=== PATIENT | male | born 1980 | race African-American/Black ===

== ENCOUNTER 2017-05-30 22:20 | Emergency (ER) | payer MEDICAID ==
[2017-05-30 22:30] VITALS: BP 101/67
--- NOTE | 2017-05-30 23:57 | ER Document Report ---
ED General - General Chief Complaint: Nose Bleed Stated Complaint: NOSE BLEED Time Seen by Provider: 05/30/17 23:43 TRAVEL OUTSIDE OF THE [place] IN LAST 30 DAYS: No - HPI Patient complains to provider of: Nosebleed Notes: Patient coming in [facility] for evaluation of nosebleed. Patient states started around 9:00 tonight. Patient states he is holding pressure however continues to bleed patient states he was swallowing a little bit of blood vomiting a little bit of blood EMS arrived instilled Afrin bilateral nares transport patient. Patient is times not have any active bleeding. Patient denies any fever chills nausea vomiting diarrhea at this time. Patient denies any pain. Patient is a hemodialysis patient did receive his dialysis today. Patient denies being on any blood thinning medication aspirin Plavix. Patient otherwise resting comfortably with no other complaints. - Related Data Allergies/Adverse Reactions: No Known Allergies Allergy (Unverified 05/30/17 22:23) Past Medical History - Social History Smoking Status: Current Every Day Smoker Family History: Reviewed & Not Pertinent Review of Systems - Review of Systems Constitutional: No symptoms reported EENT: Other - Nosebleed Cardiovascular: No symptoms reported Respiratory: No symptoms reported Gastrointestinal: No symptoms reported Genitourinary: No symptoms reported Male Genitourinary: No symptoms reported Musculoskeletal: No symptoms reported Skin: No symptoms reported Hematologic/Lymphatic: No symptoms reported Neurological/Psychological: No symptoms reported -: Yes All other systems reviewed and negative Physical Exam - Vital signs Vitals: Temp Pulse Resp BP Pulse Ox 98.1 F 105 H 20 101/67 99 05/30/17 22:28 05/30/17 22:28 05/30/17 22:28 05/30/17 22:28 05/30/17 22:28 Interpretation: Normal - General General appearance: Appears well, Alert - HEENT Head: Normocephalic, Atraumatic Eyes: Normal Conjunctiva: Normal Cornea: Normal Extraocular movements intact: Yes Pupils: PERRL Nasal: Other - Dry blood in the right nare there is excoriations along the nasal septum however at this time no active bleeding. No signs of posterior bleed. - Respiratory Respiratory status: No respiratory distress Chest status: Nontender Breath sounds: Normal Chest palpation: Normal - Cardiovascular Rhythm: Regular Heart sounds: Normal auscultation Murmur: No - Abdominal Inspection: Normal Distension: No distension Bowel sounds: Normal Tenderness: Nontender Organomegaly: No organomegaly - Back Back: Normal, Nontender - Extremities General upper extremity: Normal inspection, Nontender, Normal color, Normal ROM , Normal temperature, Other - Patient with extra long fingernails General lower extremity: Normal inspection, Nontender, Normal color, Normal ROM , Normal temperature, Normal weight bearing. No: Michelle's sign - Neurological Neuro grossly intact: Yes Cognition: Normal Orientation: AAOx4 [place] Coma Scale Eye Opening: Spontaneous Ly Coma Scale Verbal: Oriented [place] Coma Scale Motor: Obeys Commands [place] Coma Scale Total: 15 Speech: Normal Motor strength normal: LUE, RUE, LLE, RLE Sensory: Normal - Psychological Associated symptoms: Normal affect, Normal mood - Skin Skin Temperature: Warm Skin Moisture: Dry Skin Color: Normal Course - Re-evaluation Re-evalutation: 05/30/17 23:56 Unclear etiology for the patient's spontaneous nosebleed however at this time bleeding was to be under control after instillation of Afrin by EMS. I did make a nasal clip for the patient with 2 tongue pressures explained to the patient to hold pressure for 30 minutes instill Afrin patient also may use a tissue within the nare of the nose to help control bleeding if this fails to try again for another 30 minutes if that continues to return to the ER for further evaluation. Patient states understanding. Patient requesting to stay here in the ER until Thursday as he does not have a ride. Explained to the patient that we will assist as much we can getting him home - Vital Signs Vital signs: Temp Pulse Resp BP Pulse Ox 98.1 F 105 H 20 101/67 99 05/30/17 22:28 05/30/17 22:28 05/30/17 22:28 05/30/17 22:28 05/30/17 22:28 Discharge - Discharge Clinical Impression: Epistaxis Condition: Good Disposition: HOME, SELF-CARE Instructions: Nosebleed Instructions ([facility]) Additional Instructions: Your seen today for nosebleed. At this time there is no active bleeding within her nose. However sneezing or wiping her nose will cause your nose to bleed again. Blot your nose do not wipe it. If bleeding occurs again I would recommend instilling Afrin may also place part of a tissue in the side of the nose that is bleeding and then use the nasal clip to apply pressure for 30 minutes. Perform this procedure twice if bleeding does not stop return to the ER if symptoms worsen.
== END 2017-05-31 01:02 | disposition home or self-care (01) ==
LOC: ER 22:20
DX: R04.0 Epistaxis (principal); F17.200 Nicotine dependence, unspecified, uncomplicated
CPT/HCPCS: 99283